=== PATIENT | female | born 1970 | race Caucasian/White ===

== ENCOUNTER 2017-02-02 18:13 | Emergency (ER) | payer BC ==
[~2017-02-02] VITALS: Ht 154.9 cm; Wt 75.5 kg
[~2017-02-02 18:13] MED LIST: CYCLOBENZAPRINE10 MG PO
[2017-02-02 18:17] VITALS: BP 143/76
[2017-02-02 18:31] LABS: POINT-OF-CARE METER ID UU13113778
[2017-02-02 18:40] LABS: HEMATOCRIT 42.3 % (36.0-46.0); MCH 30.5 PG (29.0-34.0); MCHC 33.3 G/DL (30.0-36.0); MCV 91.6 FL (83-99); PLATELET COUNT 308 K/uL (156-360); RBC DIS.WIDTH-CV 12.3 % (11.8-14.6); RBC DIS.WIDTH-SD 41.1 % (39-53); RED BLOOD COUNT 4.62 M/uL (3.80-5.20); WHITE BLOOD COUNT 8.4 K/uL (4.1-10.2)
[2017-02-02 18:48] LABS: CHLORIDE 108 mEq/L (99-109); POTASSIUM 3.7 mEq/L (3.7-5.4); SODIUM 144 mEq/L (136-147)
[2017-02-02 18:50] LABS: GLUCOSE 109 mg/dL (70-99)
[2017-02-02 18:51] LABS: ANION GAP 14 MEQ/L (2-14)
[2017-02-02 18:54] LABS: GFR ESTIMATE (CALCULATED) > 59 mL/min/
[2017-02-02 18:55] LABS: UREA NITROGEN (BUN) 19 mg/dL (9-23)
== END 2017-02-02 21:31 | disposition left against medical advice (07) ==
LOC: EME 18:13
DX: R20.0 Anesthesia of skin (principal); R42 Dizziness and giddiness; Z53.21 Procedure and treatment not carried out due to patient leaving prior to being seen by health care provider
CPT/HCPCS: 71020; 80048; 82948; 85027; 99281

== ENCOUNTER 2017-12-02 15:40 | Inpatient (IN) | payer BC ==
[~2017-12-02] VITALS: Ht 154.9 cm; Wt 84.1 kg
[~2017-12-02 15:40] MED LIST changes: +COLACE100 MG PO
[2017-12-02 16:32] VITALS: BP 135/77
[2017-12-02 23:00] VITALS: BP 117/68
[2017-12-03] VITALS (8 sets, daily range): BP systolic 95–138; BP diastolic 53–87
[2017-12-04] VITALS: BP 117/66
[2017-12-04 03:35] VITALS: BP 101/52
[2017-12-04 08:16] VITALS: BP 118/78
[2017-12-04 11:35] VITALS: BP 103/51
[2017-12-04 15:29] VITALS: BP 10/63
[2017-12-04 16:00] VITALS: BP 106/73
== END 2017-12-04 18:55 | disposition home or self-care (01) | DRG 26 ==
LOC: SDC 15:40 → ENRESERV 20:48 → 3EAST 20:55 → 2SOUTH 20:55 → ENRESERV 21:15 → 3EAST 22:42
PROC: 00U20JZ Supplement Dura Mater with Synthetic Substitute, Open Approach (ICD-10-PCS; principal; 2017-12-02)
DX: G97.82 Other postprocedural complications and disorders of nervous system (principal); G96.0 Cerebrospinal fluid leak; Y83.2 Surgical operation with anastomosis, bypass or graft as the cause of abnormal reaction of the patient, or of later complication, without mention of misadventure at the time of the procedure
CPT/HCPCS: 36415; 80048; 85025; 86850; 86900; 86901; 87070; 87075; 87205; J0131; J0330; J0690; J1030; J1100; J1170; J1200; J2250; J2405; J2765; J2930; J3010; J3480; S0020

== ENCOUNTER 2018-06-29 09:28 | Emergency (ER) | payer BC ==
[~2018-06-29] VITALS: Ht 154.9 cm; Wt 75.7 kg
[2018-06-29 10:51] LABS: APPEARANCE CLEAR ((CLEAR)); BILIRUBIN NEGATIVE; BLOOD NEGATIVE; COLOR COLORLESS ((YELLOW)); GLUCOSE (STRIP) NEGATIVE; KETONES NEGATIVE; LEUKOCYTES NEGATIVE; NITRITE NEGATIVE; PROTEIN (STRIP) NEGATIVE; SPECIFIC GRAVITY 1.004 (1.000-1.030); UCUL ADDED? NO; UROBILINOGEN 0.2 MG/DL (0.2-1.0)
[2018-06-29 11:10] LABS: HEMATOCRIT 41.1 % (36.0-46.0); HEMOGLOBIN 13.7 G/DL (11.9-15.5); MCH 30.9 PG (29.0-34.0); MCHC 33.3 G/DL (30.0-36.0); MCV 92.6 FL (83-99); PLATELET COUNT 319 K/uL (156-360); RBC DIS.WIDTH-CV 12.4 % (11.8-14.6); RBC DIS.WIDTH-SD 42.5 % (39-53); RED BLOOD COUNT 4.44 M/uL (3.80-5.20); WHITE BLOOD COUNT 8.2 K/uL (4.1-10.2)
[2018-06-29 11:25] LABS: ALBUMIN 4.7 g/dL (3.2-4.8)
[2018-06-29 11:26] LABS: CHLORIDE 106 mEq/L (99-109); POTASSIUM 4.4 mEq/L (3.7-5.4); SODIUM 142 mEq/L (136-147)
[2018-06-29 11:28] LABS: GLUCOSE 91 mg/dL (70-99); TOTAL PROTEIN 7.7 g/dL (6.4-8.3)
[2018-06-29 11:31] LABS: ALKALINE PHOSPHATASE 95 IU/L (3-129); CREATININE 0.9 mg/dL (0.6-1.3); GFR ESTIMATE (CALCULATED) > 59 mL/min/
[2018-06-29 11:33] LABS: AST (GOT) 17 IU/L (2-34); UREA NITROGEN (BUN) 14 mg/dL (9-23)
[2018-06-29 11:34] LABS: ALT (GPT) 12 IU/L (3-49)
[2018-06-29 14:04] VITALS: BP 114/71
== END 2018-06-29 14:07 | disposition home or self-care (01) ==
LOC: EME 09:28
PROVIDERS: Emergency Medicine
DX: R20.2 Paresthesia of skin (principal); G93.5 Compression of brain; Z87.442 Personal history of urinary calculi; Z88.5 Allergy status to narcotic agent; Z88.6 Allergy status to analgesic agent
CPT/HCPCS: 70450; 80053; 81003; 83605; 85027; 99281; 99285; J7030